=== PATIENT | male | born 1965 ===

== ENCOUNTER 2017-04-27 14:26 | Outpatient (CLI) | payer BC ==
--- NOTE | 2017-04-27 15:01 | XRay Report ---
Cervical spine 4 views: X. History: Numbness and tingling. Findings: Normal height of vertebral bodies. Decrease in height of C6-C7 and C7-T1 disc spaces. There is bridging anterior osteophytes noted at C5-C6 and C6-C7. No fracture. Normal prevertebral soft tissue. Impression: Moderate to severe spondylosis lower cervical spine.
== END 2017-04-27 14:27 | disposition home or self-care (01) ==
LOC: SPVIMAG 14:26
PROVIDERS: ATTEND Internal Medicine
DX: M47.892 Other spondylosis, cervical region (principal); R20.0 Anesthesia of skin
CPT/HCPCS: 72040